=== PATIENT | female | born 1960 | race African-American/Black ===

== ENCOUNTER 2021-02-23 21:41 | Emergency (ER) | payer MEDICAID ==
[~2021-02-23] VITALS: Ht 162.6 cm; Wt 88.5 kg
[2021-02-23 22:16] VITALS: BP 159/76
[2021-02-23] MEDS ORDERED: CEPH250C PO (22:31)
[2021-02-23] MEDS ORDERED: SULF1TAB48 PO (22:31)
== END 2021-02-23 22:58 | disposition home or self-care (01) ==
LOC: ER 21:44
DX: L02.11 Cutaneous abscess of neck (principal)